=== PATIENT | male | born 1990 | race Caucasian/White ===

== ENCOUNTER 2018-02-28 14:28 | Emergency (ER) | payer OTHER ==
[2018-02-28 14:37] VITALS: BP 118/66; PULSE 75; TEMP 98.3; BMI 21.6
[2018-02-28] MEDS ORDERED: AZITHROMYCIN 1 GM PACKET PO ONE (15:26)
--- NOTE | 2018-02-28 15:34 | PDOC ---
History of Present Illness - General Chief Complaint: Penile Drainage Stated Complaint: R/O UTI Time Seen by Provider: 02/28/18 14:44 - History of Present Illness Initial Comments: 27-year-old male presents for evaluation of 3 days of dysuria after unprotected sex. He denies any comorbidities. No other associated symptoms. 02/28/18 15:28 Past History - Past Medical History Allergies/Adverse Reactions: Allergies Allergy/AdvReac Type Severity Reaction Status Date / Time No Known Allergies Allergy Verified 02/28/18 14:34 Home Medications: Ambulatory Orders NK [No Known Home Medication] 02/28/18 COPD: No - Suicide/Smoking/Psychosocial Hx Smoking History: Current every day smoker Have you smoked in the past 12 months: Yes Number of Cigarettes Smoked Daily: 10 Information on smoking cessation initiated: Yes 'Breaking Loose' booklet given: 02/28/18 Hx Alcohol Use: No Drug/Substance Use Hx: No Substance Use Type: None Review of Systems - Review of Systems : Yes: Burning, Dysuria. No: Discharge All Other Systems: Reviewed and Negative *Physical Exam - Vital Signs Last Vital Signs Temp Pulse Resp BP Pulse Ox 98.3 F 75 18 118/66 100 02/28/18 14:34 02/28/18 14:34 02/28/18 14:34 02/28/18 14:34 02/28/18 14:34 - Physical Exam Comments: GENERAL: The patient is awake, alert, and fully oriented, in no acute distress. HEAD: Normal with no signs of trauma. EYES: conjunctiva clear. ENT: Ears normal, NECK: Normal range of motion, supple EXTREMITIES: Normal range of motion, NEUROLOGICAL: Cranial nerves II through XII grossly intact. Normal speech, normal gait. PSYCH: Normal mood, normal affect. SKIN: Warm, Dry, normal turgor, no rashes or lesions noted. 02/28/18 15:30 Medical Decision Making - Medical Decision Making I will treat her for GC chlamydia UA is pending 02/28/18 15:34 02/28/18 16:40 Because he did not want to wait he was treated for GC and chlamydia urinalysis is negative for UTI *DC/Admit/Observation/Transfer Diagnosis at time of Disposition: STD (male) - Discharge Dispostion Disposition: HOME Condition at time of disposition: Stable Decision to Admit order: No - Referrals Referrals: Bradford Brown MD [Primary Care Provider] - - Patient Instructions Printed Discharge Instructions: How to Detect and Treat STDs, Facts About Sexually Transmitted Infections Additional Instructions: Today your treated for gonorrhea and chlamydia. Urinalysis was negative for an infection. The gonorrhea and chlamydia tests are pending. Please follow-up with her primary care physician if you wish to have an HIV test. Given the history of unprotected sex this is probably a good idea. Return to the emergency room should her symptoms worsen or go unresolved. It's also very important to inform your partners of your treatment and symptoms. - Post Discharge Activity
[2018-02-28] MEDS ORDERED: AZITHROMYCIN 250 MG TABLET ONE (15:37)
[2018-02-28] MEDS ORDERED: LIDOCAINE HCL 1%, 10 MG/ML (20ML VIAL) ONE (15:37)
[2018-02-28] MEDS ORDERED: AZITHROMYCIN 250 MG TABLET PO ONE (15:38)
[2018-02-28 16:26] LABS: URINE APPEARANCE CLEAR; URINE BILIRUBIN NEGATIVE (<2.0 mg/dL); URINE COLOR STRAW; URINE GLUCOSE (UA) NEGATIVE (NEGATIVE); URINE KETONE NEGATIVE (NEGATIVE); URINE LEUK ESTERASE NEGATIVE (NEGATIVE); URINE NITRITE NEGATIVE (NEGATIVE); URINE PROTEIN NEGATIVE (NEGATIVE); URINE UROBILINOGEN NEGATIVE mg/dL (0.2-1.0)
== END 2018-02-28 16:50 | disposition home or self-care (01) ==
LOC: JERFT 14:28
DX: A64 Unspecified sexually transmitted disease (principal); F17.210 Nicotine dependence, cigarettes, uncomplicated
CPT/HCPCS: 36415; 81003; 87491; 87591; 96372; 99281-25

== ENCOUNTER 2019-04-18 18:20 | Emergency (ER) | payer SELFPAY ==
--- NOTE | 2019-04-18 18:29 | PDOC ---
Rapid Medical Evaluation Time Seen by Provider: 04/18/19 18:27 Medical Evaluation: Allergies Allergy/AdvReac Type Severity Reaction Status Date / Time No Known Allergies Allergy Verified 02/28/18 14:34 04/18/19 18:28 HPI: R sided chest discomfort x3 weeks with associated R breast mass PE: Deferred ORDERS: US Discharge Disposition - Diagnosis Right-sided chest pain - Referrals - Patient Instructions - Post Discharge Activity
[2019-04-18 18:31] VITALS: BP 152/88; PULSE 92; TEMP 98; BMI 27.4
[2019-04-18] MEDS ORDERED: IBUPROFEN 400 MG TABLET (FP) PO ONE ×2 (19:32→19:36)
--- NOTE | 2019-04-18 19:42 | PDOC ---
History of Present Illness - General Chief Complaint: Pain Stated Complaint: SOB/CHEST PAIN Time Seen by Provider: 04/18/19 18:27 History Source: Patient Exam Limitations: Clinical Condition - History of Present Illness Initial Comments: 04/18/19 19:35 Patient with history of opiate dependent on methadone complaint of 3 weeks history of feeling of lump in right breast and now with pain in right breast since yesterday. Patient reported increased pain in right breast shooting across the chest when he elevates right upper arm. Denies numbness or tingling sensation. Denies left-sided chest pain, dizziness, shortness of breath, nausea , vomiting or sweats. Denies any other symptoms. Patient has not taken anything for pain Timing/Duration: other (3 weeks) Past History - Past Medical History Allergies/Adverse Reactions: Allergies Allergy/AdvReac Type Severity Reaction Status Date / Time No Known Allergies Allergy Verified 04/18/19 18:31 Home Medications: Ambulatory Orders Naproxen 500 mg PO BID PRN #20 tablet 04/18/19 COPD: No - Suicide/Smoking/Psychosocial Hx Smoking History: Current every day smoker Have you smoked in the past 12 months: Yes Number of Cigarettes Smoked Daily: 20 Information on smoking cessation initiated: No 'Breaking Loose' booklet given: 02/28/18 Hx Alcohol Use: Yes Drug/Substance Use Hx: No Substance Use Type: None Review of Systems - Review of Systems Able to Perform ROS?: Yes Is the patient limited [place] proficient: No Constitutional: No: Fever, Malaise, Weakness HEENTM: No: Symptoms Reported Respiratory: No: Symptoms reported Cardiac (ROS): No: Symptoms Reported ABD/GI: No: Symptoms Reported Musculoskeletal: Yes: Symptoms Reported, See HPI, Muscle Pain (right breast) Integumentary: Yes: Symptoms Reported, See HPI, Lumps (right breast). No: Change in Color, Erythema Neurological: No: Symptoms reported All Other Systems: Reviewed and Negative *Physical Exam - Vital Signs Last Vital Signs Temp Pulse Resp BP Pulse Ox 98.0 F 92 H 16 152/88 100 04/18/19 18:28 04/18/19 18:28 04/18/19 18:28 04/18/19 18:28 04/18/19 18:28 - Physical Exam Comments: 04/18/19 19:48 GENERAL: Well developed, well nourished. Awake and alert. No acute distress. HEENT: Normocephalic, atraumatic. PERRLA, EOMI. No conjunctival pallor. Sclera are non-icteric. Moist mucous membranes. Oropharynx is clear. NECK: Supple. Full ROM. CARDIOVASCULAR: Regular rate and rhythm. No murmurs, rubs, or gallops. Distal pulses are 2+ and symmetric. PULMONARY: No evidence of respiratory distress. Lungs clear to auscultation bilaterally. No wheezing, rales or rhonchi. ABDOMINAL: Soft. Non-tender. Non-distended. No rebound or guarding. No organomegaly. Normoactive bowel sounds. MUSCULOSKELETAL Normal range of motion at all joints. moderate TTP to right breast around jerica- areola area with barely palpable 2cm induration to jerica-areola area SKIN: Warm and dry. Normal capillary refill. No skin erythema or discolorations. no skin indentations. no nipple discharge NEUROLOGICAL: Alert, awake, appropriate. Gait is normal without ataxia. PSYCHIATRIC: Cooperative. Good eye contact. Appropriate mood General Appearance: Yes: Nourished, Appropriately Dressed. No: Apparent Distress Medical Decision Making - Medical Decision Making 04/18/19 19:39 Patient with history of opiate dependent on methadone complaint of 3 weeks history of feeling of lump in right breast and now with pain in right breast since yesterday. Patient reported increased pain in right breast shooting across the chest when he elevates right upper arm. Denies numbness or tingling sensation. Denies left-sided chest pain, dizziness, shortness of breath, nausea , vomiting or sweats. Denies any other symptoms. Patient has not taken anything for pain Exam significant for moderate tenderness to right breast more around perireola region with barely palpable 2cm induration around area of right breast. no skin erythema or discoloration. no skin indentations. no drainage from nipples. Patient symptoms likely mastodynia from inflammatory effect vs adenocarcino. Motrin 800mg PO ordered for pain. right breast U/S ordered. treat based on imaging results *DC/Admit/Observation/Transfer Diagnosis at time of Disposition: Mastodynia of right breast - Discharge Dispostion Disposition: HOME Condition at time of disposition: Stable Decision to Admit order: No - Prescriptions Prescriptions: Naproxen 500 mg PO BID PRN #20 tablet PRN Reason: pain - Referrals Referrals: Yon Hall MD [Staff Physician] - - Patient Instructions Printed Discharge Instructions: Mastalgia, DI for Mastitis Additional Instructions: Your breast ultrasound is normal and shows no mass. your pain is likely from muscle inflammation. Take prescribed medication as needed for pain and inflammation. Apply hot compress to breast 2-3 times a day as needed for swelling. Follow-up with referred breast specialist if no improvement in 4 days - Post Discharge Activity
--- NOTE | 2019-04-18 23:25 | PDOC ---
*Physical Exam - Vital Signs Last Vital Signs Temp Pulse Resp BP Pulse Ox 98.0 F 92 H 16 152/88 100 04/18/19 18:28 04/18/19 18:28 04/18/19 18:28 04/18/19 18:28 04/18/19 18:28 - Physical Exam Comments: 04/18/19 23:22 In house radiology was unable to read US, ultrasound was sent to imaging [facility] surgeon to be read and was noted to be assigned around 8 pm. At 10:45 pm, imaging [facility] surgeon was called to f/u on ultrasound; per publications sales representative at [facility], ultrasound "was not on the list." at 11:24 pm, imaging [facility] called back to notify us that they did not have a radiologist [facility] surgeon who was able to read the breast US as a stat. Patient eloped while pending US results. ED Treatment Course - Medications Given in the ED: ED Medications Discontinued Medications Generic Name Dose Route Start Last Admin Trade Name Freq PRN Reason Stop Dose Admin Ibuprofen 800 mg 04/18/19 19:32 04/18/19 19:35 Motrin - PO 04/18/19 19:33 800 mg ONCE ONE Administration *DC/Admit/Observation/Transfer Diagnosis at time of Disposition: Mastodynia of right breast - Discharge Dispostion Disposition: HOME Condition at time of disposition: Stable - Prescriptions Prescriptions: Naproxen 500 mg PO BID PRN #20 tablet PRN Reason: pain - Referrals Referrals: Yon Hall MD [Staff Physician] - Chan Segura MD [Staff Physician] - - Patient Instructions Printed Discharge Instructions: Mastalgia, DI for Mastitis Additional Instructions: Your breast ultrasound is normal and shows no mass. your pain is likely from muscle inflammation. Take prescribed medication as needed for pain and inflammation. Apply hot compress to breast 2-3 times a day as needed for swelling. Follow-up with referred breast specialist if no improvement in 4 days - Post Discharge Activity
--- NOTE | 2019-04-21 11:54 | EKG ---
Test Reason : Blood Pressure : / mmHG Vent. Rate : 099 BPM Atrial Rate : 099 BPM P-R Int : 154 ms QRS Dur : 088 ms QT Int : 348 ms P-R-T Axes : 055 032 015 degrees QTc Int : 446 ms NORMAL SINUS RHYTHM POSSIBLE LEFT ATRIAL ENLARGEMENT NONSPECIFIC ST ABNORMALITY NO PREVIOUS ECGS AVAILABLE Confirmed by NICK DELUCA MD ([id number]) on 04/21/2019 11:54:22 AM Referred By: Confirmed By:NICK DELUCA MD
== END 2019-04-18 23:41 | disposition home or self-care (01) ==
LOC: JERFT 18:20
DX: N64.4 Mastodynia (principal); F11.20 Opioid dependence, uncomplicated; F17.210 Nicotine dependence, cigarettes, uncomplicated
CPT/HCPCS: 76641-TC-RT; 93005; 93010; 99281-25

== ENCOUNTER 2021-05-21 08:17 | Emergency (ER) | payer OTHER ==
[2021-05-21 08:23] VITALS: BP 128/78; PULSE 93; TEMP 98.2; BMI 25.7
== END 2021-05-21 09:42 | disposition home or self-care (01) ==
LOC: JER 08:17
DX: M21.331 Wrist drop, right wrist (principal)
CPT/HCPCS: 99281-25